=== PATIENT | male | born 1980 | race Caucasian/White ===

== ENCOUNTER 2020-08-25 18:56 | Emergency (ER) | payer BC ==
--- NOTE | 2020-08-25 19:03 | EDM.PDOC ---
ED HPI GENERAL MEDICAL PROBLEM - General Chief Complaint: General Stated Complaint: HAVING PAIN URINATING Time Seen by Provider: 08/25/20 18:58 Source of Information: Reports: Patient History Limitations: Reports: No Limitations - History of Present Illness INITIAL COMMENTS - FREE TEXT/NARRATIVE: 40-year-old male no past medical history presents for penile discharge and pain. Patient notes that he was recently on vacation in [place] and slept with someone without using protection. He notes that yesterday he started to experience a burning sensation in the tip of his penis and when he urinates he has a mucus- like discharge. He denies abdominal pain, nausea, vomiting, lesions on his penis or groin ED ROS GENERAL - Review of Systems Review Of Systems: Comprehensive ROS is negative, except as noted in HPI. ED EXAM, GENERAL - Physical Exam Exam: See Below Exam Limited By: No Limitations General Appearance: Alert, WD/WN, No Apparent Distress Nose: Normal Inspection Throat/Mouth: Normal Voice, No Airway Compromise Head: Atraumatic, Normocephalic Neck: Normal Inspection Respiratory/Chest: No Respiratory Distress, No Accessory Muscle Use Cardiovascular: Normal Peripheral Pulses GI/Abdominal: Soft, Non-Tender (Male) Exam: Other (Patient declines genital exam) Extremities: Normal Inspection Neurological: Alert, Normal Gait Psychiatric: Normal Affect, Normal Mood Skin Exam: Warm, Dry, Intact, Normal Color Course - Orders/Labs/Meds Orders: Active Orders 24 hr Category Date Time Status CHLAMYDIA AND GONORRHEA BY TMA Stat Lab 08/25/20 19:18 Ordered UA RFX EVELYN AND CULT IF INDIC [URIN] Stat Lab 08/25/20 19:18 Ordered Meds: Medications Discontinued Medications Generic Name Dose Route Start Last Admin Trade Name Isiahq PRN Reason Stop Dose Admin Azithromycin 1,000 mg 08/25/20 19:18 Azithromycin 250 Mg Tab PO 08/25/20 19:19 STAT STA Ceftriaxone Sodium 500 mg/ 1 mls @ 1 mls/sec 08/25/20 19:18 Lidocaine HCl IM 08/25/20 19:19 ONETIME ONE - Re-Assessments/Exams Free Text/Narrative Re-Assessment/Exam: 08/25/20 19:24 We will treat for gonorrhea/chlamydia. Testing is sent. Offered patient HIV and syphilis testing which she declines. Departure - Departure Time of Disposition: 19:24 Disposition: Home, Self-Care 01 Condition: Good Clinical Impression: Sexually transmissible disease - Discharge Information Instructions: Gonorrhea, Chlamydia, Male Forms: ED Department Discharge Additional Instructions: The following information is given to patients seen in the emergency department who are being discharged to home. This information is to outline your options for follow-up care. We provide all patients seen in our emergency department with a follow-up referral. The need for follow-up, as well as the timing and circumstances, are variable depending upon the specifics of your emergency department visit. If you don't have a primary care physician on staff, we will provide you with a referral. We always advise you to contact your personal physician following an emergency department visit to inform them of the circumstance of the visit and for follow-up with them and/or the need for any referrals to a consulting specialist. The emergency department will also refer you to a specialist when appropriate. This referral assures that you have the opportunity for follow-up care with a specialist. All of these measure are taken in an effort to provide you with optimal care, which includes your follow-up. Under all circumstances we always encourage you to contact your private physician who remains a resource for coordinating your care. When calling for follow-up care, please make the office aware that this follow-up is from your recent emergency room visit. If for any reason you are refused follow-up, please contact the [facility] Department at and asked to speak to the emergency department charge nurse. Please follow up with your primary care physician. If you do not have a primary care physician, see below: [facility] [address] [place] [id number] My [facility] [address] [place] [address] [facility] [address] [place] [id number] - My Orders Last 24 Hours: My Active Orders 08/25/20 19:18 CHLAMYDIA AND GONORRHEA BY TMA Stat UA RFX EVELYN AND CULT IF INDIC [URIN] Stat - Assessment/Plan Last 24 Hours: My Active Orders 08/25/20 19:18 CHLAMYDIA AND GONORRHEA BY TMA Stat UA RFX EVELYN AND CULT IF INDIC [URIN] Stat
[2020-08-25] MEDS ORDERED: cefTRIAXone 500 MG in Lidocaine 1% 1 ML IM ONE (19:18)
[2020-08-25] MEDS ORDERED: Azithromycin 250 MG Tab PO STA (19:18)
[2020-08-29 12:07] LABS: C.TRACHOMATIS BY TMA Negative (Negative); N.GONORRHOEAE BY TMA Positive (Negative)
== END 2020-08-25 19:45 | disposition home or self-care (01) ==
LOC: MW.ED 18:56
DX: A64 Unspecified sexually transmitted disease (principal)
CPT/HCPCS: 81001; 87086; 87491; 87591; 96372; 99283; A9270; J0696; 99282